=== PATIENT | male | born 1935 | race Two or more races ===

== ENCOUNTER → 2019-08-06 | Day surgery (SDC) | payer MEDICARE, BC ==
[2019-08-06] VITALS (9 sets, daily range): BP systolic 148–167; BP diastolic 69–80
[~2019-08-06] VITALS: Ht 172.7 cm; Wt 71.2 kg
[~2019-08-06] MED LIST: BSS 15ml BTL ONE; BSS 500ml btl ONE; DIOVAN80 MG ORAL; EPINEPHrine 1mg/1ml Amp ONE; LIPITOR10 MG ORAL; LR 1000ml 1,000 ML IVLG SCH; LR 1000ml ONE; Lidocaine 1% MPF 10mg/ml 5ml ONE; NORVASC2.5 MG ORAL; NS Irrig 1000ml ONE; PLAVIX75 MG ORAL; Polysporin Opth Oint 3.5gm ONE; Povidone-Iodine 5% opth solution ONE; Sodium Hyaluronate 10 mg/ml 0.85ml ONE; Sterile Water Irrig 1000ml IRRIG ONE; Tetracaine 0.5% Opth 4ml Soln ONE; fentaNYL 100 mcg/2 mL IV ONE; fentaNYL 100 mcg/2 mL IV PRN; prednisoLONE acetate 1% Opth Susp 1ml ONE
--- NOTE | 2019-08-06 10:01 | Pre-Procedure Note/Attestation ---
Pre-Procedure Note/Attestation Complete Prior to Procedure Planned Procedure: left - Removal of cataract and placement of intraocular lens , left eye Procedure Narrative: Removal of cataract and placement of intraocular lens, left eye Indications for Procedure Pre-Operative Diagnosis: Cataract, combined, left eye Attestation I attest that I discussed the nature of the procedure; its benefits; risks and complications; and alternatives (and the risks and benefits of such alternatives ), prior to the procedure, with the patient (or the patient's legal bottling equipment sales representative). I attest that, if there was a reasonable possibility of needing a blood transfusion, the patient (or the patient's legal bottling equipment sales representative) was given the [place] [facility] [employer] [facility] standardized written summary, pursuant to the [place] Blood Safety Act ([place] Health and Safety Code # 1645, as amended). I attest that I re-evaluated the patient just prior to the surgery and that there has been no change in the patient's H&P, except as documented below: Frederick Carrion MD Aug 06, 2019 10:01
[2019-08-06] MEDS: Ciprofloxacin Opth Soln 5ml LEFT EYE SCH ×3 (10:10→11:04)
[2019-08-06] MEDS: Cyclopentolate 1% Opth Sol 2ml LEFT EYE SCH ×3 (10:53→11:12)
[2019-08-06] MEDS: Tropicamide 1% Opth 15ml Soln LEFT EYE SCH ×3 (10:53→11:11)
[2019-08-06] MEDS: Phenylephrine 10% Opth Soln 5ml LEFT EYE SCH ×3 (10:53→11:11)
[2019-08-06] MEDS: Diclofenac Sod 0.1% Op Soln LEFT EYE SCH ×3 (10:53→11:11)
[2019-08-06] MEDS: Akten 3.5% 1ml Btl LEFT EYE SCH ×3 (10:53→11:12)
[2019-08-06] MEDS: Tobradex Opth Susp 2.5ml LEFT EYE SCH ×3 (10:56→11:11)
--- NOTE | 2019-08-06 13:26 | Anethesia Preoperative Eval ---
Anesthesia Pre-op PMH/ROS General Date of Evaluation: Aug 06, 2019 Time of Evaluation: 12:50 Anesthesiologist: Elida ASA Score: ASA 3 Mallampati Score Class I : Soft palate, uvula, fauces, pillars visible Class II: Soft palate, uvula, fauces visible Class III: Soft palate, base of uvula visible Class IV: Only hard plate visible Mallampati Classification: Class II Surgeon: Murali Diagnosis: L eye cataract Surgical Procedure: Cataract extraction Anesthesia History: none Family History: no anesthesia problems Allergies: Coded Allergies: No Known Allergies (Unverified , 08/06/19) Medications: see eMAR Patient NPO?: Yes Past Medical History Cardiovascular: Reports: HTN; Denies: CAD, [place], valve dz, arrhythmia, other Pulmonary: Denies: asthma, COPD, BENNY, other Gastrointestinal/Genitourinary: Reports: GERD; Denies: CRI, ESRD, other Neurologic/Psychiatric: Reports: depression/anxiety, TIA; Denies: dementia, CVA, other Endocrine: Denies: DM, hypothyroidism, steroids, other HEENT: Reports: cataract (L), cataract (R); Denies: glaucoma, [place] (L), [place] (R), other Hematology/Immune: 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 Exam Physician Exam Last Vital Signs Date Time Temp Pulse Resp B/P (MAP) Pulse Ox O2 Delivery O2 Flow Rate FiO2 08/06/19 11:17 Room Air 08/06/19 11:16 97.1 66 18 153/78 98 Constitutional: NAD Neurologic: CN 2-12 intact Cardiovascular: RRR, no M/R/G Respiratory: CTA Gastrointestinal: S/NT/ND Airway Exam Mallampati Score: Class III MO: limited Neck: stiff ROM: limited Teeth: missing Dentures: no upper, no lower Anesthesia Pre-op A/P Labs see chart Studies Pre-op Studies: EKG - SR Risk Assessment & Plan Assessment: ASA 3 Plan: MAC Status Change Before Surgery: Leighton Waters MD Aug 06, 2019 13:26
--- NOTE | 2019-08-06 13:57 | Immediate Post-Op Evaluation ---
Immediate Post-Op Evalulation Immediate Post-Op Evalulation Procedure: L eye cataract extraction with IOL Date of Evaluation: Aug 06, 2019 Time of Evaluation: 13:56 IV Fluids: 600 Blood Products: none Estimated Blood Loss: none Urinary Output: none Blood Pressure Systolic: 158 Blood Pressure Diastolic: 74 Pulse Rate: 64 Respiratory Rate: 18 O2 Sat by Pulse Oximetry: 99 Temperature (Fahrenheit): 97.6 Pain Score (1-10): 1 Nausea: No Vomiting: No Complications none Patient Status: awake, patent, none Hydration Status: adequate Leighton Marrero MD Aug 06, 2019 13:57
--- NOTE | 2019-08-06 13:58 | 48 Hour Post Anesthesia Eval ---
Post Anesthesia Evaluation Procedure: L eye cataract extraction with IOL Date of Evaluation: Aug 06, 2019 Time of Evaluation: 14:56 Blood Pressure Systolic: 148 0: 68 Pulse Rate: 64 Respiratory Rate: 20 Temperature (Fahrenheit): 97.5 O2 Sat by Pulse Oximetry: 98 Airway: patent Nausea: No Vomiting: No Pain Intensity: 1 Hydration Status: adequate Cardiopulmonary Status: stable Mental Status/LOC: patient returned to baseline Follow-up Care/Observations: n/a Post-Anesthesia Complications: none Follow-up care needed: ready to discharge Leighton Marrero MD Aug 06, 2019 13:58
--- NOTE | 2019-08-06 13:58 | Discharge Instructions ---
Discharge Instructions Discharge Instructions Follow Up Orders Wear eye shield at all times except to place eye drops Continue preoperative eye drops Followup tomorrow in Dr Carrion's office For Congestive Heart Failure Reminder Report to your physician any weight gain of 5 pounds or more in one week. Frederick Carrion MD Aug 06, 2019 13:58
--- NOTE | 2019-08-06 13:59 | Brief Operative Note ---
Immediate Post Operative Note Operative Note Pre-op Diagnosis: Cataract, combined, left eye Procedure: Phaco PC IOL OS Post-op Diagnosis: same as pre-op Surgeon: Angel Carrion MD MS Corporate Treasurer: none Anesthesiologist: Dr Marrero Anesthesia: local, MAC Specimen: none Complications: none Fluids: see chart Estimated Blood Loss: minimal Implant(s) used?: Yes - Kin ZCB00 19.5 Frederick Carrion MD Aug 06, 2019 13:59
--- NOTE | 2019-08-06 17:30 | Operative Note - Dictated ---
DATE OF OPERATION: 08/06/2019 SURGEON: Frederick Carrion MD. HOUSE FURNISHINGS SUPERVISOR SURGEON: None. ANESTHESIOLOGIST: Dr. Marrero. ANESTHESIA: Local/standby/monitored anesthesia care. PREOPERATIVE DIAGNOSIS: Dense cataract, left eye. POSTOPERATIVE DIAGNOSIS: Dense cataract, left eye. PROCEDURE: 1. Phacoemulsification of cataract, left eye. 2. Placement of posterior chamber intraocular lens, left eye (model [employer] [id number], power 19.5). SPECIMENS: None. COMPLICATIONS: None. INDICATIONS FOR SURGERY: The patient has had painless progressive decrease in the visual acuity in the left eye secondary to cataract. The patient understands the risks of surgery including infection, bleeding, need for further surgery, loss of vision, no improvement in vision, loss of the eye, loss of life, glaucoma, retinal detachment, and understands these risks and elects to proceed with surgery. FINDINGS: The patient had a +4 very dense cataract, left eye. The capsule remained intact during the entire procedure. OPERATIVE NOTE: After informed consent was obtained, the patient was brought into the operating room, placed in supine position. Cardiac and respiratory monitors were attached. A time-out was performed and all criteria were met and everyone in the room agreed. The left eye was then draped and prepped in sterile manner for ocular surgery. A lid speculum was placed in the eye. A 1% lidocaine preservative-free was injected at the approximate 3 o'clock limbus. A conjunctival peritomy from approximately 2:30 to 3:30 was made and dissected posteriorly. Hemostasis was maintained with bipolar cautery. A 2.6 mm limbal incision was made centered approximately 3 o'clock and dissected anteriorly. A paracentesis was made approximately 5:30 and Shugarcaine was injected into the anterior chamber followed by Healon. The anterior chamber was then entered using a 2.6 mm keratome through the limbal incision. An anterior capsulorrhexis was then performed. Hydrodissection and hydrodelineation of the lens was then performed. The lens was then phacoemulsified using divide and conquer four-quadrant technique. Residual cortical material was then aspirated. The lens was taken from its package, placed into the cartridge, and the tip of the cartridge was placed through the limbal incision. The lens was injected into the capsular bag and centered nicely with a [place] hook. Healon was aspirated from the anterior chamber and capsular bag. All wounds were hydrated closed and one 10-0 nylon interrupted suture was then placed through the limbal incision and the knot was rotated and buried. Care was taken during the entire procedure not to touch the endothelium. The wounds were checked and found to be watertight. Again, there was one 10-0 nylon interrupted suture that was placed in the limbal incision and the knot was rotated and buried. The conjunctiva was then closed with forceps cautery. The lens was examined and the optic and both haptics were in the capsular bag along the 3:00 to 9:00 meridian. Frederick Carrion M.D. DR: NED JOB#: [id number] CC:
== END | disposition home or self-care (01) ==
LOC: SUR 10:07
DX: H25.812 Combined forms of age-related cataract, left eye (principal); I10 Essential (primary) hypertension; K21.9 Gastro-esophageal reflux disease without esophagitis; F32.9 Major depressive disorder, single episode, unspecified; F41.9 Anxiety disorder, unspecified; Z86.73 Personal history of transient ischemic attack (TIA), and cerebral infarction without residual deficits; M19.90 Unspecified osteoarthritis, unspecified site
CPT/HCPCS: 66984; 94003; J0171; J1100; J2704; J3010; J7120; V2632; 94150